=== PATIENT | male | born 1995 | race Caucasian/White ===

== ENCOUNTER → 2018-06-30 | Emergency (ER) | payer OTHER ==
[~2018-06-30] MED LIST: NS 0.9% 1000 ML* 1,000 ML IV ONE; Tamsulosin CAP* 0.4 MG PO ONE
--- NOTE | 2018-06-30 14:02 | RAD ---
Indication: Scrotal pain. Real-time sonography of the scrotum was performed. The right testis measures 4.8 x 2.3 x 3.3 cm. No intratesticular masses are noted. Normal flow is noted in the right testis. The right epididymis measures 1.1 x 0.6 cm. Small hydrocele is noted. Left testis measures 4.9 x 2.3 x 3.0 cm. No intratesticular masses are noted. Normal flow is noted in the left testis on Doppler interrogation. The epididymis measures 0.9 x 0.8 cm. Small left hydrocele is noted. IMPRESSION: Small hydroceles are noted bilaterally. No intratesticular masses noted. Normal flow in both testes.
--- NOTE | 2018-06-30 14:33 | ED ---
GI/ HPI - HPI Summary HPI Summary: Patient is a 22 y/o M BIBA w/ c/o sudden onset left testicular pain at 0945. He reports dizziness, N/V. Provider in room at 1230. EMS gave zofran 4 mg and fentynal 100 mcg. Patient reports taking two motrin this morning. He denies penile discharge as well as new sexual partners and anal sex. No PSHx reported, no recent trauma, PMHx of anxiety. Patient denies fever, chills, WALSH, ear pain, sore throat, blurred vision, double vision, neck pain, CP, SOB, ABD pain, back pain, dysuria, hematuria, blood in the stool, edema, bruising, rashes, anxiety, and depression. On triage, pain is rated 7/10, nothing is reported to aggravate/ alleviate Sx. Home medications and allergies are reviewed. - History of Current Complaint Stated Complaint: TESTICULAR PAIN Hx Obtained From: Patient Onset/Duration: Started Hours Ago - onset 0945 today, Still Present Timing: Constant, Lasting Hours Severity: Severe Current Severity: Severe - 7/10 Pain Intensity: 7 Additional Locations for Males: Testicles - left Associated Signs and Symptoms: Positive: Dizziness, Nausea, Vomiting. Negative : Back Pain, Bruising, Discharge, Blood-Streaked Stool, Bright Red Blood w/Stool , Blood w/Stool, Fever, Hematuria, Dysuria, Chills, Abdominal Pain, Chest Pain Additional Signs & Symptoms: Negative: Penile Discharge Aggravating Factor(s): Nothing Alleviating Factor(s): Nothing - Allergy/Home Medications Allergies/Adverse Reactions: Allergies Allergy/AdvReac Type Severity Reaction Status Date / Time No Known Allergies Allergy Verified 06/30/18 14:11 PMH/Surg Hx/FS Hx/Imm Hx Sensory History: Denies: Hx Legally Blind, Hx Deafness Opthamlomology History: Denies: Hx Legally Blind EENT History: Denies: Hx Deafness Infectious Disease History: No Infectious Disease History: Denies: Traveled Outside the [place] in Last 30 Days - Family History Known Family History: Negative: Blood Disorder - Social History Alcohol Use: None Substance Use Type: Reports: None Smoking Status (MU): Never Smoked Tobacco Review of Systems Negative: Fever, Chills Positive: Other - NEGATIVE: double vision . Negative: Blurred Vision Negative: Sore Throat, Ear Ache Negative: Chest Pain Negative: Shortness Of Breath Positive: Vomiting, Nausea. Negative: Abdominal Pain Positive: other - NEGATIVE: blood in stool POSITIVE: left testicular pain . Negative: dysuria, discharge - penile , hematuria Positive: Other - NEGATIVE: back/neck pain . Negative: Edema Negative: Rash, Bruising Neurological: Other - POSITIVE: dizziness Negative: Headache Negative: Depressed All Other Systems Reviewed And Are Negative: No Physical Exam - Summary Physical Exam Summary: Appearance: Alert, conversive, nontoxic appearing Skin: Warm, dry, no mottling, no rashes, no contusions HEENT: EOMI, PERRL, moist mucous membranes Neck: No masses on the neck, supple Respiratory: Clear to auscultation, breath sounds present, no rales, no rhonchi , no wheezes Cardiovascular: RRR, pulses are symmetrical in both lower and upper extremities Abdomen: Soft, non-tender Genital Exam: No penile discharge, no genital redness or swelling. Bowel Sounds: Present Musculoskeletal: No CVA tenderness, no obvious deformity, moving all extremities in a grossly normal manner Neurological: A&Ox3, CN II-XII Intact, moving all extremities symmetrically Psychiatric: Normal affect and mood Triage Information Reviewed: Yes Vital Signs On Initial Exam: Initial Vitals Temp Pulse Resp BP Pulse Ox 97.6 F 83 18 133/70 97 06/30/18 12:28 06/30/18 12:28 06/30/18 12:28 06/30/18 12:28 06/30/18 12:28 Vital Signs Reviewed: Yes Diagnostics - Vital Signs Vital Signs Temp Pulse Resp BP Pulse Ox 06/30/18 12:28 97.6 F 83 18 133/70 97 - Laboratory Result Diagrams: 06/30/18 15:20 06/30/18 15:20 Lab Statement: Any lab studies that have been ordered have been reviewed, and results considered in the medical decision making process. - CT ct abd/pel CT Interpretation Completed By: Radiologist Summary of CT Findings: IMPRESSION: #. Mild LEFT hydronephrosis is traced to a 5 mm maximum dimension stone at the proximal. LEFT ureter. This report was reviewed by ED physician. - Ultrasound No standard instances Ultrasound Interpretation Completed By: Radiologist Summary of Ultrasound Findings: IMPRESSION: Small hydroceles are noted bilaterally. No intratesticular masses noted. Normal flow in both testes. This report was reviewed by ED physician. Re-Evaluation - Re-Evaluation First Eval Re-Evaluation Time: 15:31 Change: Improved Comment: Patient states that he is feeling better. Results of US were discussed. However, due to teal colored urine, UA and CT abd/pel will be done. Second Eval Re-Evaluation Time: 18:05 Comment: Discussed results of CT abd/pel, at this time patient reports that he was experiencing abdominal pain in the morning with the testicular pain. He will be discharged to home and is instructed to follow up with urologist. Patient is agreeable with this. GIGU Course/Dx - Course Course Of Treatment: Patient is a 22 y/o M BIBA w/ c/o sudden onset left testicular pain at 0945. He reports dizziness, N/V. Provider in room at 1230. EMS gave zofran 4 mg and fentynal 100 mcg. Patient reports taking two motrin this morning. He denies penile discharge as well as new sexual partners and anal sex. No PSHx reported, no recent trauma, PMHx of anxiety. Gential exam showed no tenderness/redness, no penile discharge. Rest of physical exam was similarly normal. During ED course, patient received Flomax 0.4 mg, fluids. Labs showed alk phos 109, glucose 113, WBC 8.1. TESTICULAR US IMPRESSION: Small hydroceles are noted bilaterally. No intratesticular masses noted. Normal flow in both testes. 1531 - Patient states that he is feeling better. Results of US were discussed. However, due to teal colored urine, UA and CT abd/pel will be done. UA showed ct colored urine with turbid appearance, 2+ protein, 3+ blood , 3+ WBC, RBC 3+, no bacteria or glucose. CT ABD/PEL IMPRESSION: #. Mild LEFT hydronephrosis is traced to a 5 mm maximum dimension stone at the proximal. LEFT ureter. 1805 - Discussed results of CT abd/pel, at this time patient reports that he was experiencing abdominal pain in the morning with the testicular pain. He will be discharged to home and is instructed to follow up with urologist. Patient is agreeable with this. Dx of left kidney stone. - Diagnoses Provider Diagnoses: Kidney stone on left side Discharge - Sign-Out/Discharge Documenting (check all that apply): Patient Departure - discharge - Discharge Plan Condition: Stable Disposition: HOME Prescriptions: Tamsulosin CAP* [Flomax CAP*] 0.4 mg PO DAILY #14 cap MDD 1 Patient Education Materials: Kidney Stones (ED) Forms: *School Release Referrals: [facility] [Primary Care Provider] - Kenneth Yoder MD [Medical Doctor] - Additional Instructions: Take the flomax as instructed. I have sent the prescription to your pharmacy on file. followup with urology. I have given you a referral on your discharge papers. return if worse or any new symptoms. Take tylenol and motrin for pain. drink plenty of fluids. - Billing Disposition and Condition Condition: STABLE Disposition: Home - Attestation Statements Document Initiated by Scribe: Yes Documenting Scribe: Sachin Adair Provider For Whom Lidya is Documenting (Include Credential): Danielle Biswas MD Scribe Attestation: Sachin Chowdary , scribed for Danielle Biswas MD on 07/03/18 at 1753. Scribe Documentation Reviewed: Yes Provider Attestation: The documentation as recorded by the Sachin carrera accurately reflects the service I personally performed and the decisions made by me, Danielle Biswas MD
[2018-06-30 15:30] LABS: ABS Basophils 0 10^3/ul (0-0.2); ABS Eosinophils 0 10^3/ul (0-0.6); ABS Lymphocytes 0.9 10^3/ul (1.0-4.8); ABS Monocytes 0.3 10^3/ul (0-0.8); ABS Neutrophils 6.8 10^3/ul (1.5-7.7); ABS Nucleated RBC 0 10^3/ul; Eosinophil % 0.2 % (0-6); Hematocrit 42 % (42-52); Hemoglobin 14.6 g/dl (14.0-18.0); Mean Corpuscular HGB Conc 35 g/dl (31-36); Mean Corpuscular Hemoglobin 30 pg (27-31); Mean Corpuscular Volume 87 fL (80-94); Mean Platelet Volume 6.5 um3 (7.4-10.4); Nucleated Red Blood Cells % 0; Platelet Count 247 10^3/ul (150-450); Red Blood Count 4.83 10^6/ul (4.00-5.40); Red Cell Distribution Width 13 % (10.5-15); White Blood Count 8.1 10^3/ul (3.5-10.8)
[2018-06-30 15:33] LABS: Urine Appearance Turbid; Urine Blood 3+ (Negative); Urine Color Amber; Urine Ketones Negative (Negative); Urine Protein 2+(100 mg/dL) (Negative); Urine Red Blood Cell 3+(>10/hpf) (Absent); Urine Specific Gravity 1.025 (1.010-1.030); Urine Urobilinogen Negative (Negative); Urine White Blood Cell 3+(>20/hpf) (Absent)
[2018-06-30 15:52] LABS: EGFR Non-African American 119.8 (>60)
--- NOTE | 2018-06-30 16:53 | RAD ---
INDICATION: Sudden onset LEFT testicular pain. Vomiting. Hematuria. COMPARISON: Testicular ultrasound of the same date. TECHNIQUE: Multidetector CT images were obtained from the lung bases to the ischial tuberosities. No oral contrast administered. Assessment of the visceral limited without IV contrast. Multiplanar reformation. REPORT: VISUALIZED INFERIOR THORAX: Unremarkable visualized inferior thorax. LIVER / GALLBLADDER / PANCREAS / SPLEEN: Unremarkable unenhanced liver, gallbladder, pancreas, spleen. ALIMENTARY TRACT: Unremarkable unopacified upper GI, small bowel, infra cecal appendix, and colon. Negative for ascites, free air, hernias. MESENTERIC: Unremarkable. ADRENAL / GENITOURINARY: Normal adrenal glands. 2 mm nonobstructing stone lower pole calyx RIGHT kidney. Mild LEFT hydronephrosis is traced to a 5 mm maximum dimension stone at the proximal LEFT ureter as it courses underneath the LEFT gonadal vein; reference axial image 72 and coronal reformatted image 42.. No additional LEFT ureteral stones evident. Unremarkable distended urinary bladder. Symmetric seminal vesicles. RETROPERITONEAL: Negative for lymphadenopathy. VASCULAR: Normal diameter abdominal aorta and iliac arteries. Physiologic distention of the IVC. BONES: Unremarkable. SOFT TISSUE: Unremarkable. IMPRESSION: #. Mild LEFT hydronephrosis is traced to a 5 mm maximum dimension stone at the proximal LEFT ureter.
[2018-06-30 19:11] VITALS: BP 130/63
== END | disposition home or self-care (01) ==
LOC: ED 12:20
DX: N20.0 Calculus of kidney (principal); N43.3 Hydrocele, unspecified
CPT/HCPCS: 36415; 74176; 76870; 80053; 81003; 81015; 82550; 85025; 87086; 87491; 87591; 96360; 96361; 99282

== ENCOUNTER 2019-05-27 12:02 | Emergency (ER) | payer OTHER ==
[2019-05-27] MEDS ORDERED: Morphine 4 MG/ML VIAL (1 ml) 4 MG/ML VIAL IV ONE (12:09)
[2019-05-27] MEDS ORDERED: NS 0.9% 1000 ML** 1,000 ML IV ONE (12:09)
[2019-05-27] MEDS ORDERED: Ondansetron TAB* 4 MG PO ONE (12:09)
--- NOTE | 2019-05-27 12:21 | ED ---
Abdominal Pain/Male - HPI Summary HPI Summary: This patient is a 23 year old M [facility] via EMS to ED with a chief complaint of lower abdominal and groin pain since this morning. Patient was woken up by the pain. He vomited multiple times due to the pain. Patient has a history of kidney stones and reports this pain is similar to the time he had kidney stones last year. The patient rates the pain 10/10 in severity. Symptoms aggravated by nothing. Symptoms alleviated by nothing. Patient reports subjective fever, chills (described as body tingling), nausea. - History of Current Complaint Chief Complaint: EDFlankPain Stated Complaint: GROIN/ABDOMINAL PAIN PER EMS Hx Obtained From: Patient, EMS Onset/Duration: Sudden Onset, Lasting Hours - Since waking up this morning, Still Present Timing: Constant, Lasting Hours - Since waking up this morning Severity Initially: Severe Severity Currently: Severe Pain Intensity: 10 Pain Scale Used: 0-10 Numeric Location: Discrete At: RLQ, Groin Aggravating Factor(s): Nothing Alleviating Factor(s): Nothing Associated Signs And Symptoms: Positive: Fever, Nausea, Vomiting, Other - Chills - Allergies/Home Medications Allergies/Adverse Reactions: Allergies Allergy/AdvReac Type Severity Reaction Status Date / Time No Known Allergies Allergy Verified 06/30/18 14:11 Home Medications: Home Medications Amitriptyline TAB* [Elavil TAB*] 50 mg PO BEDTIME 05/27/19 [History Confirmed ] Sertraline* [Zoloft*] 100 mg PO DAILY 05/27/19 [History Confirmed 05/27/19] PMH/Surg Hx/FS Hx/Imm Hx Endocrine/Hematology History: Denies: Hx Diabetes Cardiovascular History: Denies: Hx Hypercholesterolemia, Hx Hypertension Respiratory History: Denies: Hx Asthma History: Reports: Hx Kidney Stones Sensory History: Denies: Hx Legally Blind, Hx Deafness Opthamlomology History: Denies: Hx Legally Blind - Surgical History Surgery Procedure, Year, and Place: Denies Infectious Disease History: No Infectious Disease History: Denies: Traveled Outside the [place] in Last 30 Days - Family History Known Family History: Negative: Cardiac Disease, Hypertension, Diabetes, Blood Disorder - Social History Alcohol Use: None Hx Substance Use: No Substance Use Type: Reports: None Hx Tobacco Use: No Smoking Status (MU): Never Smoked Tobacco Review of Systems Positive: Fever, Chills Positive: Abdominal Pain - Lower, Vomiting Positive: pain - Groin pain All Other Systems Reviewed And Are Negative: Yes Physical Exam - Summary Physical Exam Summary: VITAL SIGNS: Reviewed. GENERAL: Patient is a well-developed and nourished male who is lying comfortable in the stretcher. Patient is not in any acute respiratory distress. HEAD AND FACE: Normocephalic and atraumatic. EYES: PERRLA, EOMI x 2, No injected conjunctiva. EARS: Hearing grossly intact. Ear canals and tympanic membranes are WNL. MOUTH: Oropharynx within normal limits. NECK: Supple, trachea is midline, no adenopathy, no JVD. CHEST: Symmetric, no tenderness at palpation. LUNGS: Clear to auscultation bilaterally. No wheezing or crackles. CVS: RRR, S1 and S2 present, no murmurs or gallops appreciated. ABDOMEN: diffuse abdominal tenderness, mostly in RLQ EXTREMITIES: FROM in all major joints, no edema, no cyanosis or clubbing. NEURO: Alert and oriented x 3. No acute neurological deficits. Speech is normal. SKIN: Dry and warm. Triage Information Reviewed: Yes Vital Signs On Initial Exam: Initial Vitals Temp Pulse Resp BP Pulse Ox 96.7 F 99 18 131/67 100 05/27/19 12:08 05/27/19 12:08 05/27/19 12:08 05/27/19 12:08 05/27/19 12:08 Vital Signs Reviewed: Yes Diagnostics - Vital Signs Vital Signs Temp Pulse Resp BP Pulse Ox 05/27/19 12:08 96.7 F 99 18 131/67 100 - Laboratory Result Diagrams: 05/27/19 12:23 05/27/19 12:23 Lab Statement: Any lab studies that have been ordered have been reviewed, and results considered in the medical decision making process. - CT A/P CT Interpretation Completed By: Radiologist Summary of CT Findings: 1. 0.4 CM CALCULUS OF THE RIGHT UPJ WITHOUT APPRECIABLE HYDRONEPHROSIS. 2. NORMAL APPENDIX. Dr. Petty has reviewed this radiology report. Re-Evaluation - Re-Evaluation First Eval Re-Evaluation Time: 15:27 Change: Improved Comment: Patient reports feeling better. Discussed results with patient. Patient will be discharged home with dx of kidney stones. Patient understands and agrees with this plan. Abdominal Pain Male Course/Dx - Course Assessment/Plan: Patient is a 23-year-old male who presents to the emergency department with a chief complaint of lower abdominal pain. The patient is in significant pain therefore, I started an IV access and the patient was given morphine for the pain and Zofran for nausea and vomiting. Blood test results without any significant abnormality except for potassium level of 3.3, glucose 138, lactic acid is 2.4. Urinalysis is negative for UTI however he has 1+ protein and trace ketones 3+ blood. Abdominopelvic CT impression: 0.4 cm calculus at the right UPJ with a patient with hydronephrosis. Normal appendix. After the patient was given pain medications the patients symptoms have resolved. The patient is hemodynamically stable alert and oriented 3. I discussed the findings and test results with the patient and since the patient is asymptomatic and will be discharged the patient home with pain medications. Patient is hemodynamically stable alert oriented 3 and he is pain-free. - Diagnoses Provider Diagnoses: Right kidney stone Discharge ED - Sign-Out/Discharge Documenting (check all that apply): Patient Departure - Discharge Patient Received Moderate/Deep Sedation with Procedure: No - Discharge Plan Condition: Stable Disposition: HOME Prescriptions: Hydrocodone/Acetaminophen [[place] 5-325 Tablet] 1 each PO Q6H PRN #10 tablet MDD 4 PRN Reason: Pain - Moderate Ibuprofen TAB* [Motrin TAB* 600 MG] 600 mg PO Q8H PRN #30 tab PRN Reason: Pain - Moderate Patient Education Materials: Kidney Stones (ED) Referrals: [facility] [Primary Care Provider] - 3 Days Additional Instructions: FOLLOW UP WITH YOUR PRIMARY CARE PROVIDER WITHIN ONE WEEK. RETURN TO THE ED FOR ANY WORSENING OR NEW SYMPTOMS. - Billing Disposition and Condition Condition: STABLE Disposition: Home - Attestation Statements Document Initiated by Scribe: Yes Documenting Scribe: Beto Panda Provider For Whom Lidya is Documenting (Include Credential): Chico Petty MD Scribe Attestation: Beto Chowdary, scribed for Chico Petty MD on 05/28/19 at 1840. Scribe Documentation Reviewed: Yes Provider Attestation: The documentation as recorded by the Beto carrera accurately reflects the service I personally performed and the decisions made by me, Chico Petty MD Status of Scribe Document: Viewed
[2019-05-27 12:47] LABS: ABS Eosinophils 0.1 10^3/ul (0-0.6); ABS Lymphocytes 1.1 10^3/ul (1.0-4.8); ABS Monocytes 0.7 10^3/ul (0-0.8); ABS Neutrophils 7.2 10^3/ul (1.5-7.7); Eosinophil % 0.9 %; Hematocrit 43 % (42-52); Hemoglobin 15.1 g/dL (14.0-18.0); Lymphocyte % 12.1 %; Mean Corpuscular HGB Conc 35 g/dL (31-36); Mean Corpuscular Hemoglobin 31 pg (27-31); Mean Corpuscular Volume 87 fL (80-94); Mean Platelet Volume 6.9 fL (7.4-10.4); Platelet Count 244 10^3/uL (150-450); Red Blood Count 4.91 10^6 /uL (4.18-5.48); Red Cell Distribution Width 13 % (10-15); White Blood Count 9.1 10^3/uL (3.5-10.8)
[2019-05-27 13:00] LABS: Albumin 4.6 g/dL (3.2-5.2); Albumin/Globulin Ratio 2.1 (1-3); BUN/Creatinine Ratio 24.7 (8-20); C Reactive Protein 4.83 mg/L (<8.01); Calcium 9.2 mg/dL (8.6-10.3); EGFR African American 130.6 (>60); EGFR Non-African American 107.9 (>60); Globulin 2.2 g/dL (2-4); Potassium 3.3 mmol/L (3.5-5.0); Total Bilirubin 0.8 mg/dL (0.2-1.0); Total Protein 6.8 g/dL (6.4-8.9)
[2019-05-27] MEDS ORDERED: Iohexol 300* (CONTRAST) 10 ML SDV IV ONE (13:34)
[2019-05-27 15:03] LABS: Urine Appearance Cloudy; Urine Bacteria Absent (Absent); Urine Bilirubin Negative (Negative); Urine Blood 3+ (Negative); Urine Color Yellow; Urine Glucose Negative (Negative); Urine Ketones Trace (Negative); Urine Nitrite Negative (Negative); Urine Protein 1+(30 mg/dL) (Negative); Urine Red Blood Cell 3+(>10/hpf) (Absent); Urine Specific Gravity 1.012 (1.010-1.030); Urine Urobilinogen Negative (Negative); Urine White Blood Cell Trace(0-5/hpf) (Absent)
[2019-05-27 15:55] VITALS: BP 119/65
== END 2019-05-27 16:00 | disposition home or self-care (01) ==
LOC: ED 12:02
DX: N20.1 Calculus of ureter (principal); Z87.442 Personal history of urinary calculi; R11.10 Vomiting, unspecified; R50.9 Fever, unspecified
CPT/HCPCS: 36415; 74177; 80053; 81003; 81015; 83605; 83690; 85025; 86140; 87086; 96361; 96374; 99282; A9270-GY; J2270; Q9967

== ENCOUNTER 2019-06-02 10:56 | Emergency (ER) | payer OTHER ==
[2019-06-02 12:31] LABS: ABS Eosinophils 0.1 10^3/ul (0-0.6); ABS Lymphocytes 0.9 10^3/ul (1.0-4.8); ABS Monocytes 0.8 10^3/ul (0-0.8); ABS Neutrophils 7.3 10^3/ul (1.5-7.7); Eosinophil % 1.4 %; Hematocrit 40 % (42-52); Hemoglobin 13.9 g/dL (14.0-18.0); Lymphocyte % 9.4 %; Mean Corpuscular HGB Conc 35 g/dL (31-36); Mean Corpuscular Hemoglobin 30 pg (27-31); Mean Corpuscular Volume 88 fL (80-94); Mean Platelet Volume 6.6 fL (7.4-10.4); Nucleated Red Blood Cells % 0.1; Platelet Count 227 10^3/uL (150-450); Red Blood Count 4.58 10^6 /uL (4.18-5.48); Red Cell Distribution Width 13 % (10-15); White Blood Count 9.1 10^3/uL (3.5-10.8)
[2019-06-02 12:46] LABS: Albumin 4.3 g/dL (3.2-5.2); Albumin/Globulin Ratio 1.9 (1-3); BUN/Creatinine Ratio 15.2 (8-20); C Reactive Protein 16.27 mg/L (<8.01); EGFR African American 125.7 (>60); EGFR Non-African American 103.9 (>60); Globulin 2.3 g/dL (2-4); Magnesium 1.9 mg/dL (1.9-2.7); Potassium 3.8 mmol/L (3.5-5.0); Total Bilirubin 0.5 mg/dL (0.2-1.0); Total Protein 6.6 g/dL (6.4-8.9)
[2019-06-02] MEDS ORDERED: NS 0.9% 1000 ML** 1,000 ML IV ONE ×3 (12:49→13:51)
[2019-06-02] MEDS ORDERED: Ketorolac INJ* 30 MG/ML 1 ML VIAL IV ONE ×2 (12:49→17:10)
--- NOTE | 2019-06-02 13:05 | ED ---
Abdominal Pain/Male - HPI Summary HPI Summary: patient is a 23-year-old male with history of known kidney stones and a recent diagnosis of a right-sided kidney stone which was diagnosed by CT 5 days ago. He has a known 0.4 cm calculus of the right UPJ without appreciable hydronephrosis. He also had a kidney stone 0.5 cm which spontaneously passed one year ago. He had a follow-up to Dr. Chen's office that days ago, however he never called their office. Patient denies any urinary symptoms including gross hematuria. He is endorsing worsening pain to the right flank pain which is nonradiating. He has been denying any fevers, sweats, chills years he has been denying any other symptoms. He endorses intermittent nausea without vomiting. Denies any constipation or diarrhea. - History of Current Complaint Chief Complaint: EDFlankPain Stated Complaint: RIGHT FLANK PAIN Time Seen by Provider: 06/02/19 11:51 Hx Obtained From: Patient Onset/Duration: Sudden Onset Timing: Constant Severity Initially: Moderate Severity Currently: Moderate Pain Intensity: 10 Pain Scale Used: 0-10 Numeric Location: Flank Radiates: No Character: Cramping Aggravating Factor(s): Nothing Alleviating Factor(s): Nothing Associated Signs And Symptoms: Positive: Negative - Allergies/Home Medications Allergies/Adverse Reactions: Allergies Allergy/AdvReac Type Severity Reaction Status Date / Time No Known Allergies Allergy Verified 06/15/19 07:02 PMH/Surg Hx/FS Hx/Imm Hx Previously Healthy: Yes Endocrine/Hematology History: Denies: Hx Diabetes Cardiovascular History: Denies: Hx Hypercholesterolemia, Hx Hypertension Respiratory History: Denies: Hx Asthma History: Reports: Hx Kidney Stones Sensory History: Denies: Hx Legally Blind, Hx Deafness Opthamlomology History: Denies: Hx Legally Blind - Surgical History Surgery Procedure, Year, and Place: Denies - Immunization History Hx Pertussis Vaccination: No Immunizations Up to Date: Yes Infectious Disease History: No Infectious Disease History: Denies: Traveled Outside the [place] in Last 30 Days - Family History Known Family History: Negative: Cardiac Disease, Hypertension, Diabetes, Blood Disorder - Social History Occupation: Employed Part-time Lives: With Family Alcohol Use: None Hx Substance Use: No Substance Use Type: Reports: None Hx Tobacco Use: No Smoking Status (MU): Never Smoked Tobacco Review of Systems Negative: Fever, Chills, Fatigue, Skin Diaphoresis Negative: Palpitations, Chest Pain Negative: Shortness Of Breath Negative: Abdominal Pain, Vomiting, Diarrhea, Nausea Positive: flank pain - right sided, hematuria Negative: Arthralgia, Myalgia Skin: Negative All Other Systems Reviewed And Are Negative: Yes Physical Exam Triage Information Reviewed: Yes Vital Signs On Initial Exam: Initial Vitals Temp Pulse Resp BP Pulse Ox 98.1 F 86 18 144/75 100 06/02/19 11:03 06/02/19 11:03 06/02/19 11:03 06/02/19 11:03 06/02/19 11:03 Vital Signs Reviewed: Yes Appearance: Positive: Well-Appearing, Well-Nourished Skin: Positive: Warm, Skin Color Reflects Adequate Perfusion Head/Face: Positive: Normal Head/Face Inspection Eyes: Positive: EOMI, LANETTE, Conjunctiva Clear Neck: Positive: Supple, No Lymphadenopathy Respiratory/Lung Sounds: Positive: Clear to Auscultation, Breath Sounds Present Cardiovascular: Positive: Pulses are Symmetrical in both Upper and Lower Extremities Abdomen Description: Positive: CVA Tenderness (R) Musculoskeletal: Positive: Normal, Strength/ROM Intact Neurological: Positive: Sensory/Motor Intact, Alert, Oriented to Person Place, Time Psychiatric: Positive: Affect/Mood Appropriate Procedures - Sedation Patient Received Moderate/Deep Sedation with Procedure: No Diagnostics - Vital Signs Vital Signs Temp Pulse Resp BP Pulse Ox 06/02/19 11:03 98.1 F 86 18 144/75 100 - Laboratory Lab Results: Lab Results 06/02/19 06/02/19 06/02/19 Range/Units 12:15 12:15 12:15 WBC 9.1 (3.5-10.8) 10^3/uL RBC 4.58 (4.18-5.48) 10^6 /uL Hgb 13.9 L (14.0-18.0) g/dL Hct 40 L (42-52) % MCV 88 (80-94) fL MCH 30 (27-31) pg MCHC 35 (31-36) g/dL RDW 13 (10-15) % Plt Count 227 (150-450) 10^3/uL MPV 6.6 L (7.4-10.4) fL Neut % (Auto) 79.7 % Lymph % (Auto) 9.4 % Dickson % (Auto) 9.2 % Eos % (Auto) 1.4 % Baso % (Auto) 0.3 % Absolute Neuts (auto) 7.3 (1.5-7.7) 10^3/ul Absolute Lymphs (auto) 0.9 L (1.0-4.8) 10^3/ul Absolute Monos (auto) 0.8 (0-0.8) 10^3/ul Absolute Eos (auto) 0.1 (0-0.6) 10^3/ul Absolute Basos (auto) 0.0 (0-0.2) 10^3/ul Absolute Nucleated RBC 0.0 10^3/ul Nucleated RBC % 0.1 Sodium 140 (135-145) mmol/L Potassium 3.8 (3.5-5.0) mmol/L Chloride 106 (101-111) mmol/L Carbon Dioxide 27 (22-32) mmol/L Anion Gap 7 (2-11) mmol/L BUN 14 (6-24) mg/dL Creatinine 0.92 (0.67-1.17) mg/dL Est GFR ( Amer) 125.7 (>60) Est GFR (Non-Af Amer) 103.9 (>60) BUN/Creatinine Ratio 15.2 (8-20) Glucose 107 H (70-100) mg/dL Lactic Acid 0.9 (0.5-2.0) mmol/L Calcium 9.0 (8.6-10.3) mg/dL Magnesium 1.9 (1.9-2.7) mg/dL Total Bilirubin 0.50 (0.2-1.0) mg/dL AST 18 (13-39) U/L ALT 16 (7-52) U/L Alkaline Phosphatase 82 (34-104) U/L C-Reactive Protein 16.27 H (<8.01) mg/L Total Protein 6.6 (6.4-8.9) g/dL Albumin 4.3 (3.2-5.2) g/dL Globulin 2.3 (2-4) g/dL Albumin/Globulin Ratio 1.9 (1-3) Lipase 12 (11.0-82.0) U/L Result Diagrams: 06/02/19 12:15 06/02/19 12:15 Lab Statement: Any lab studies that have been ordered have been reviewed, and results considered in the medical decision making process. Abdominal Pain Male Course/Dx - Course Course Of Treatment: On arrival into the ED, the patient appears to be in pain distress. He states despite taking his hydrocodone, he continues to have right- sided flank pain. He has not followed up with Dr. Chen's office in urology. He has a known 0.4 cm calculus at the right UPJ without appreciable hydronephrosis which was diagnosed [address] scan. Labs were obtained today which show no elevated white count and a CRP of 16. A renal ultrasound was obtained which shows right-sided hydronephrosis which is progressed since 5 days ago. Discussed case with Dr. Chen. He recommends 2 g Rocephin, 1 more liter of fluids as well as pain control and a KUB. On KUB, stone is not well visualized. Patient has better pain control at this time. Continues to endorse mild tenderness to the right flank. He will call for his office tomorrow morning and patient is encouraged and increase of his pain medication to 10 mg hydrocodone up to every 6 hours as needed for pain. Patient is okay for plan and discharge at this time. He will strain urine and call tomorrow morning if he continues to have symptoms. - Diagnoses Differential Diagnosis/HQI/PQRI: Ureteral Stone Provider Diagnoses: Ureteral calculi Discharge ED - Sign-Out/Discharge Documenting (check all that apply): Patient Departure - Discharge Plan Condition: Stable Disposition: HOME Patient Education Materials: Kidney Stones (ED) Referrals: [facility] [Primary Care Provider] - Delvin Chen MD [Medical Doctor] - Additional Instructions: Please call Dr. Chen's office tomorrow if you continue to have symptoms Hydrocodone - you may take 2 pills if you have any discomfort Ibuprofen 600mg three times daily as needed for pain as well Strain your urine - Billing Disposition and Condition Condition: STABLE Disposition: Home - Attestation Statements Provider Attestation: pt seen by midlevel provider independently, based on their assessment, it was not necessary to present the case to me but I was available for consultation. I did not form a physician-patient relationship with the patient. The chart however, has been reviewed. am signing this note strictly in an administrative capacity.
[2019-06-02] MEDS ORDERED: cefTRIAXone(*) 2 GM in NS 0.9% 100 ML* 100 ML IVPB ONE (13:51)
[2019-06-02] MEDS ORDERED: Morphine 4 MG/ML VIAL (1 ml) 4 MG/ML VIAL IV ONE (14:29)
[2019-06-02] MEDS ORDERED: Ondansetron INJ* 2 MG/ML VIAL IV ONE (14:29)
[2019-06-02 16:13] LABS: Urine Appearance Turbid; Urine Bacteria Absent (Absent); Urine Bilirubin Negative (Negative); Urine Blood 3+ (Negative); Urine Color Red; Urine Glucose Negative (Negative); Urine Ketones 1+ (Negative); Urine Nitrite Negative (Negative); Urine Protein 2+(100 mg/dL) (Negative); Urine Red Blood Cell 3+(>10/hpf) (Absent); Urine Specific Gravity 1.017 (1.010-1.030); Urine Urobilinogen Negative (Negative); Urine White Blood Cell Absent (Absent)
[2019-06-02 17:27] VITALS: BP 135/67
== END 2019-06-02 17:26 | disposition home or self-care (01) ==
LOC: ED 10:56
DX: N20.1 Calculus of ureter (principal); Z87.442 Personal history of urinary calculi
CPT/HCPCS: 36415; 74018; 76775; 80053; 81003; 81015; 83605; 83690; 83735; 85025; 86140; 96361; 96365; 96366; 96374; 96375; 99283; J0696; J1885; J2270; J2405

== ENCOUNTER → 2019-06-04 15:29 | Day surgery (SDC) | payer OTHER ==
--- NOTE | 2019-06-03 18:40 | HP ---
CC: Dr. Nicole; Dr. Connor * ADMITTING HISTORY AND PHYSICAL: DATE OF ADMISSION/OPERATION: 06/04/19 ADMITTING DIAGNOSES: 1. Calculus, right ureter. 2. Complete obstruction, right ureter with right hydronephrosis and proximal hydroureter. PLANNED PROCEDURE: Right ureteroscopy, possible laser and stent insertion. SURGEON: Dr. Chen. ADMITTING HISTORY AND PHYSICAL: Delio Ness is a 23-year-old [employer] student with a history of recurrent renal calculi. In 2018, he had a 5-mm calculus in the left ureter, which he subsequently passed after almost a month. More recently over the last couple of weeks, he has had right flank pain and nausea, requiring 2 trips to the emergency room. He initially had a CAT scan done on 05/27/19 which had revealed a 4 to 5 mm calculus in the proximal right ureter and again went back to the emergency room on 06/02/19 for increasing right flank pain and was noted to have worsening right hydronephrosis. He was seen in my office on 06/03/19 and ultrasound revealed persistent right hydronephrosis with increased renal cortical echogenicity and absence of right ureteral jet. I had a detailed discussion with Delio and also by phone with his mother and I recommended trial of a few more days of conservative management and initially had planned to see him back in followup on 06/08/19 and if he had not passed the stone by then, to proceed with ureteroscopy. However, he called back and because of the severity of the pain over the last few episodes, he would like to proceed now with ureteroscopy and possible laser lithotripsy and is being brought in for the same. PAST MEDICAL HISTORY: Significant for: 1. Renal calculi. 2. Anxiety. PAST SURGICAL HISTORY: Significant for wisdom teeth extraction and myringotomy and ear tubes as a child. MEDICATIONS ON ADMISSION: 1. Amitriptyline 1 tablet daily. 2. Sertraline 1 tablet daily (doses not known at time of dictation). 3. Hydrocodone p.r.n. 4. Ibuprofen p.r.n. ALLERGIES: No known drug allergies. FAMILY HISTORY: His grandmother had recurrent renal calculi. SOCIAL HISTORY: Smoking history: He is a nonsmoker. REVIEW OF SYSTEMS: He is otherwise in excellent health. There is no history of diabetes mellitus or any other major systemic illness. PHYSICAL EXAMINATION GENERAL: Reveals a pleasant anxious appearing young gentleman. VITAL SIGNS: Blood pressure is 120/72, pulse 83 per minute, temperature 96.7, oxygen saturation 98% on room air. LUNGS: Clear bilaterally. CARDIOVASCULAR: Regular rate and rhythm. S1, S2. ABDOMEN: Soft with moderate right flank tenderness. IMPRESSION: A 23-year-old gentleman with obstructing calculus in the right ureter, requiring 2 trips to the emergency room and evidence of complete ureteral obstruction with increased renal cortical echogenicity, who is now being brought in for right ureteroscopy, possible laser and stent insertion. [id number]/CPS #: [id number] MTDD
[~2019-06-04 15:29] MED LIST changes: +Buffered Lidocaine 1% SYRIN* 1 ML/SYRINGE INTRADERM ONE; +Dexamethasone IV* 4 MG/ML 1 ML (4 MG) ONE; +Dexamethasone TAB* 4 MG ONE; +Dexamethasone TAB* 4 MG PO ONE; +DiMENhydriNATE IV* 50 MG/ML VIAL IV PUSH PRN; +Famotidine IV* 10 MG/ML 2 ML (20 mg) IV ONE; +Famotidine IV* 10 MG/ML 2 ML (20 mg) ONE; +Gentamicin ADULT (*) 40 MG/ML VIAL (2 ML VIAL = 80 MG) ONE; +HYDROmorphone INJ1* 1 MG/ML SYRINGE ONE; +Iohexol 180 (CONTRAST) 10 ML SDV IV ONE; +KETAMINE HCL* 50 MG/ML 10 ML VIAL ONE; +Lactated Ringers 1000 ML Bag* 1,000 ML IV SCH; +Midazolam* 1 MG/ML 5 ML VIAL (5 MG) ONE; -NS 0.9% 1000 ML* 1,000 ML IV ONE; +Naloxone* 0.4 MG/ML 1 ML VIAL IV PRN; +Ondansetron ODT TAB* 4 MG ONE; +Ondansetron ODT TAB* 4 MG PO ONE; +PROCHLORPERAZINE INJ 5 MG/ML 2 ML VIAL IV PRN; -Tamsulosin CAP* 0.4 MG PO ONE; +cefTRIAXone(*) 2 GM ADDV.VIAL IVPB ONE; +fentaNYL* 50 MCG/ML 2 ML VIAL (100 MCG VIAL) IV PRN; +fentaNYL* 50 MCG/ML 2 ML VIAL (100 MCG VIAL) ONE; +oxyCODONE/Acetamin 5/325 MG* TAB ONE
[2019-06-04] MEDS: oxyCODONE/Acetamin 5/325 MG* TAB PO PRN ×2 (18:29→19:02)
[2019-06-04] MEDS: HYDROmorphone INJ1* 1 MG/ML SYRINGE IV PRN ×5 (18:41→19:01)
[2019-06-04 20:11] VITALS: BP 131/75
--- NOTE | 2019-06-04 23:35 | OP ---
DATE OF OPERATION: 06/04/19 - [facility] DATE OF : [birth year] SURGEON: Delvin Chen MD ANESTHESIOLOGIST: Dr. Garrido. ANESTHESIA: General. PRE-OP DIAGNOSES: 1. Right hydronephrosis. 2. Complete obstruction of right ureter secondary to calculus, right ureter. POST-OP DIAGNOSES: 1. Right hydronephrosis. 2. Complete obstruction of right ureter secondary to calculus, right ureter. 3. Urethral stricture. OPERATIVE PROCEDURE: Cystoscopy, right retrograde pyelogram, right ureteroscopy , and right stent insertion. COMPLICATIONS: None. STENT USED: 7-Wolof stent, right ureter. OPERATIVE FINDINGS: 1. Stricture, penile urethra. 2. High grade obstruction, right ureter with cloudy urine noted draining from right kidney after relief of obstruction. POSTOPERATIVE CONDITION: Stable. INDICATIONS: Delio Ness is a 23-year-old gentleman with a history of recurrent renal and ureteral calculi. He has had severe right flank pain secondary to an obstructing calculus in the right ureter and now desires treatment of the same. DESCRIPTION OF PROCEDURE: After induction of general anesthesia, the patient was placed in dorsal lithotomy position. Sequential compression devices were in place and functioning. Initial evaluation revealed a stricture in the penile urethra, which was carefully dilated. The remainder of the urethra was unremarkable. The bladder was examined. Clear efflux was noted from the left orifice. There was no efflux noted from the right orifice suggesting a complete obstruction. A guidewire was introduced into the right ureter. Once the wire was advanced proximally, there was drainage of a significant amount of dark cloudy urine from the right ureter suggesting a high-grade obstruction. An open-ended catheter was introduced and advanced up into the renal pelvis. Urine was obtained from the right kidney and sent for culture and sensitivity. Limited right retrograde pyelogram revealed fullness of the right collecting system. A 6-Wolof semi-rigid ureteroscope was introduced into the right ureter and advanced under direct vision. The last 3 to 4 cm of the ureter were visualized and there was no evidence of calculus within the last 4 cm or so. Because of the drainage of the cloudy concentrated urine from the proximal ureter, the visibility was impaired and I did not want to advance the ureteroscope more proximally because of that. The ureteroscope was carefully withdrawn under direct vision and a 7-Wolof stent was introduced and positioned under fluoroscopy with good proximal and distal positioning obtained. My plan is to obtain a postoperative x-ray to see if the calculus is visible on the x-ray and then to bring him back either for shockwave lithotripsy or for a repeat ureteroscopy with laser lithotripsy once the kidney has decompressed adequately. The patient tolerated the procedure satisfactorily and was transferred back to the recovery area in stable condition. [id number]/CPS #: [id number] MTDD
== END | disposition home or self-care (01) ==
LOC: OR 15:29
PROVIDERS: ATTEND Urology
DX: N13.2 Hydronephrosis with renal and ureteral calculous obstruction (principal); Z87.442 Personal history of urinary calculi; F41.9 Anxiety disorder, unspecified
CPT/HCPCS: 74018; 74420; 87086; A9270-GY; C1876; J0696; J1100; J1170; J1580; J2250; J3010; J8540

== ENCOUNTER → 2019-06-15 06:26 | Day surgery (SDC) | payer OTHER ==
--- NOTE | 2019-06-12 20:38 | HP ---
INTERVAL HISTORY NOTE: DATE OF PLANNED ADMISSION AND SURGERY: 06/15/19 HISTORY OF PRESENT ILLNESS: Please refer to the detailed history and physical on this patient for his admission on 06/04/19. Mr. Ness is a 23-year-old white male, who had recurrent episodes of right renal colic and was noted to have a 4- to 5-mm calculus in the proximal right ureter. Because of recurrent and persistent pain requiring 2 trips to the emergency room, the patient underwent a cystoscopy and insertion of a right ureteral stent by Dr. Chen on 06/04/19. Post-operative KUB showed the stent in good position and there was suggestion of a radiopacity in the proximal right ureter adjacent to the stent about 2 to 3 cm below the ureteropelvic junction. The patient was then evaluated in the office and had a renal ultrasound. The study showed the stent in good position. No calculi were noted in the right kidney making it likely that the stone is still in the ureter. The patient now is admitted for right ureteroscopy, possible laser lithotripsy, and right ureteral stent exchange. There have not been any changes in the condition of the patient in between. Dr. Chen, who is going to be out of town, asked me to perform the procedure on Delio. Dr. Chen had discussed the upcoming plans with Delio. All their questions were answered by him. Pre-op, in the holding area, I again discussed the planned procedure in detail with Delio and his mother, all their questions were answered. [id number]/[facility] #: [id number] [place]
[~2019-06-15 06:26] MED LIST changes: +Acetaminophen TAB* 325 MG PO PRN; -Dexamethasone TAB* 4 MG ONE; -Dexamethasone TAB* 4 MG PO ONE; -Famotidine IV* 10 MG/ML 2 ML (20 mg) IV ONE; -Famotidine IV* 10 MG/ML 2 ML (20 mg) ONE; -Gentamicin ADULT (*) 40 MG/ML VIAL (2 ML VIAL = 80 MG) ONE; -HYDROmorphone INJ1* 1 MG/ML SYRINGE ONE; -KETAMINE HCL* 50 MG/ML 10 ML VIAL ONE; +Ketorolac INJ* 30 MG/ML 1 ML VIAL ONE; +Lidocaine 2% PF * 5 ML VIAL ONE; +Metoclopramide IV* 5 MG/ML 2 ML VIAL ONE; +Midazolam* 1 MG/ML 2 ML VIAL (2 MG) ONE; -Midazolam* 1 MG/ML 5 ML VIAL (5 MG) ONE; +Ondansetron INJ* 2 MG/ML VIAL ONE; -Ondansetron ODT TAB* 4 MG ONE; -Ondansetron ODT TAB* 4 MG PO ONE; -PROCHLORPERAZINE INJ 5 MG/ML 2 ML VIAL IV PRN; +Propofol* 10 MG/ML 20 ML BTL ONE; +oxyCODONE TAB* 5 MG TAB PO PRN; -oxyCODONE/Acetamin 5/325 MG* TAB ONE
[2019-06-15 10:31] VITALS: BP 126/53
--- NOTE | 2019-06-15 13:12 | OP ---
DATE OF OPERATION: 06/15/19 - [facility] DATE OF : [birth year] SURGEON: Kenneth Yoder MD. ANESTHESIOLOGIST: Dr. White. ANESTHESIA: General. PRE-OP DIAGNOSES: 1. Proximal right ureteral calculus (5 mm). 2. Status post placement of right ureteral stent. POST-OP DIAGNOSES: 1. Impacted proximal right ureteral calculus (5 mm). 2. Status post placement of right ureteral stent. OPERATIVE PROCEDURES: 1. Cystoscopy. 2. Right ureteroscopy and extraction of proximal right ureteral calculus. 3. Right retrograde pyelography and right ureteral stent exchange (6-Swedish). INDICATION FOR PROCEDURE: Delio is a 23-year-old male who had recurrent episodes of right renal colic secondary to a proximal 5 mm right ureteral calculus. He was managed conservatively initially; however, he required 2 trips to the emergency room and he continued to have pain. On 06/04/19, Dr. Chen placed a right ureteral stent. The patient is now admitted for ureteroscopy and extraction of the stone. PATHOLOGY: At fluoroscopy, the right ureteral stent was in good position. The ureteral calculus could not be visualized on ureteroscopy. At cystoscopy, the distal limb of the stent was seen coming from the right ureteral orifice. There was the expected edema and hyperemia of the bladder mucosa adjacent to the distal limb of the stent. Upon right ureteroscopy, there was passive dilation of the ureter allowing the easy introduction of the ureteroscope all the way into the proximal ureter. At that level a 5 mm calculus that had the gross appearance of a calcium oxalate stone was noted to be impacted in the ureteral mucosa. There was the expected edema of the mucosa adjacent to the stone. Following extraction of the stone, retrograde pyelography showed mild hydronephrosis. There was delayed drainage of contrast from the kidney. DESCRIPTION OF PROCEDURE: After successful general anesthesia, the patient was placed in the lithotomy position and was prepped and draped for a cystoscopy. Cystoscopy was performed. The bladder was inspected and the above findings were noted. The distal limb of the stent was then pulled out to the level of the urethral meatus. A flexible tip guidewire was introduced through the lumen of the stent and positioned in the area of the renal pelvis and the stent was removed keeping the guidewire in place. A 6.5 semirigid tapered ureteroscope was then introduced under direct vision inside the bladder. A flexible tip basket was introduced through the port of the ureteroscope and its flexible tip was introduced into the right ureter alongside the guidewire. That allowed the atraumatic introduction of the ureteroscope inside the ureter. The scope was passed without difficulty all the way into the proximal ureter, where the calculus was identified and noted to be impacted. Using the basket, the stone was manipulated, disimpacted, engaged in the basket and extracted without any trauma. Retrograde pyelography was then performed. After waiting for about 5 minutes, there was still retained contrast in the collecting system and the ureter after waiting for about 5 minutes. It was decided to place a stent. A size 6-Swedish stent was then placed with the proximal end coiling in the renal pelvis and the distal end coiling inside the bladder. There was prompt drainage of contrast from the kidney and no extravasation. The patient tolerated the procedure well and left the operating room in good condition. The plan is to have the patient back in the office in 1 week and the stent will be removed under local anesthesia. [id number]/CPS #: [id number] MTDD
== END | disposition home or self-care (01) ==
LOC: OR 06:26
PROVIDERS: ATTEND Urology
DX: N13.2 Hydronephrosis with renal and ureteral calculous obstruction (principal)
CPT/HCPCS: 74420; 82365; 88300; C1876; J0696; J1100; J1885; J2250; J2405; J2704; J2765; J3010